=== PATIENT | female | born 1955 | race African-American/Black ===

== ENCOUNTER 2020-05-10 00:12 | Emergency (ER) | payer MEDICAID ==
[~2020-05-10] VITALS: Ht 162.6 cm; Wt 73.0 kg
--- NOTE | 2020-05-10 00:46 | NUR ---
TASK RN: PT ASSISTED TO ROOM BY FRIEND. PT SPEAKS AZERI CREOL, FRIEND INTERPRETTING AND TONSORIAL ARTIST SERVICE USED FOR INITAL ASSESSMENT. PT REPORTS GENERALIZED PAIN X JANUARY. LIMITED BLE AND BILAT SHOULDER ROM; NO OPEN WOUNDS OR OBVIOUS DEFORMITIES NOTED. HX OF HTN, OFF ALL MEDICATIONS SINCE JANUARY "I CAN'T GET REFILLS". PT MARKEDLY HYPERTENSIVE, 200's/110's. DENIES HEADACHE, CHEST PAIN, OR SOB. BP/SPO2/ECG MONITORING IN PLACE. REPORT TO [facility]
[2020-05-10] MEDS ORDERED: IBUP-1221 PO (01:17)
[2020-05-10] MEDS ORDERED: AMLO-211 PO (01:17)
[2020-05-10] MEDS ORDERED: NAPR-872 PO (01:17)
[2020-05-10] MEDS ORDERED: FERR324T5 PO (01:17)
[2020-05-10] MEDS ORDERED: HYDR12.517 PO (01:17)
[2020-05-10] MEDS ORDERED: POTA20TA14 PO (01:17)
--- NOTE | 2020-05-10 01:17 | NUR ---
DIRECTOR EMERGENCY SERVICES USED FOR INITIAL ASSESSMENT WITH PROVIDER AND NURSE. PATIENT HAVING ALL-OVER ACHES AND L KNEE PAIN WITH SLIGHT LLE EDEMA, NON-PITTING. NIECE AT BEDSIDE. CALL GALLARDO IN REACH. SAFETY MAINTAINED. PATIENT AGREES WITH PLAN OF CARE.
[2020-05-10] MEDS ORDERED: OXYcodone/APAP 5/325MG TABLET ONE (01:26)
[2020-05-10] MEDS ORDERED: AMLODIPINE 10 MG TAB ONE (01:26)
[2020-05-10] MEDS ORDERED: OXYcodone/APAP 5/325MG TABLET PO ONE (01:30)
[2020-05-10] MEDS ORDERED: HYDROCHLOROTHIAZIDE 25 MG TABLET PO ONE (01:30)
[2020-05-10] MEDS ORDERED: AMLODIPINE 10 MG TAB PO ONE (01:30)
--- NOTE | 2020-05-10 01:33 | NUR ---
MEDICATIONS ORDERED ADMINISTERED AND PATIENT TRANSFERRED TO US AT THIS TIME.
[2020-05-10 01:34] LABS: BASOPHILS % (AUTO) 1 % (0-1); EOSINOPHILS % (AUTO) 2 % (1-7); LYMPHOCYTES % (AUTO) 37 % (22-44); MEAN CORPUSCULAR HEMOGLOBIN 20.9 pg (27.0-34.8); MEAN CORPUSCULAR HGB CONC 31.8 g/dL (32.4-35.8); MEAN PLATELET VOLUME 8.9 fL (7.4-10.4); MONOCYTES % (AUTO) 9 % (2-9); NEUTROPHILS % (AUTO) 52 % (42-75); PLATELET COUNT 246 x10^3/uL (130-400); RED BLOOD COUNT 5.43 x10^6/uL (3.82-5.3); RED CELL DISTRIBUTION WIDTH 16.9 % (9.6-15.2)
[2020-05-10 01:39] LABS: ALANINE AMINOTRANSFERASE 27 U/L (12-78); ALBUMIN 3.6 g/dL (3.4-5.0); ANION GAP 6 mmol/L (5-15); CALCIUM 8.7 mg/dL (8.5-10.1); CHLORIDE 108 mmol/L (98-107); CREATININE 0.66 mg/dL (0.55-1.02)
[2020-05-10 01:41] LABS: ALKALINE PHOSPHATASE 75 U/L (45-117); BILIRUBIN,TOTAL 0.3 mg/dL (0.2-1.0); TOTAL PROTEIN 8.3 g/dL (6.4-8.2)
[2020-05-10 01:51] LABS: ANISOCYTOSIS 1+; MD MORPH REVIEW ONLY
[2020-05-10 01:52] LABS: <PLATELET ESTIMATE> ADEQUATE; HYPOCHROMIA 2+; LARGE PLATELETS 1+; OVALOCYTES 1+; TARGET CELLS 1+; TEAR DROPS 1+
[2020-05-10 01:53] LABS: MICROCYTOSIS 2+
[2020-05-10 01:54] LABS: POLYCHROMASIA 1+
--- NOTE | 2020-05-10 01:58 | NUR ---
PATIENT RETURNED FROM US
--- NOTE | 2020-05-10 02:21 | NUR ---
PATIENT ASSISTED UP TO BSC. STEADY GAIT. UA OBTAINED AND RN WALKED TO LAB. CALL GALLARDO IN REACH. BP DECREASING SINCE PO MEDICATION ADMINISTRATION. WILL CONTINUE TO MONITOR.
[2020-05-10 02:26] LABS: MICROSCOPIC NOT IND
--- NOTE | 2020-05-10 03:38 | NUR ---
DISCHARGE INSTRUCTIONS REVIEWED WITH PATIENT WITH THAI CREOLE NOTARY PUBLIC WITH ERNA. NO FURTHER QUESTIONS AT THIS TIME. PRESCRIPTION HANDED DIRECTLY TO PATIENT. INSTRUCTED PATIENT TO TAKE BP MEDS TONIGHT AND PATIENT VERBALIZED THIS BACK TO ME WHEN I ASKED WHEN SHE WOULD TAKE THESE MEDS AGAIN SINCE I GAVE THEM TO HER TONIGHT. NO IV PLACED DURING THIS ER VISIT. ALL PERSONAL BELONGINGS WITH PATIENT ON DC. STEADY GAIT TO [facility]IO
[2020-05-10 03:40] VITALS: BP 198/109
== END 2020-05-10 03:42 | disposition home or self-care (01) ==
LOC: ED 02:09
DX: G89.29 Other chronic pain (principal); M79.662 Pain in left lower leg; M25.562 Pain in left knee; R94.31 Abnormal electrocardiogram [ECG] [EKG]; R07.9 Chest pain, unspecified; I10 Essential (primary) hypertension
CPT/HCPCS: 36415; 71045; 80053; 81003; 85025; 93005; 99285